=== PATIENT | female | born 1985 | race Caucasian/White ===

== ENCOUNTER 2018-07-22 07:38 | Emergency (ER) | payer SELFPAY | END 2018-07-22 08:02 | LOC: JD.ED 07:38 | DX: Z53.21 Procedure and treatment not carried out due to patient leaving prior to being seen by health care provider (principal) ==

== ENCOUNTER 2021-05-27 11:56 | Emergency (ER) | payer BC ==
[2021-05-27] MEDS ORDERED: Sodium Chloride 0.9% 10 ML Syringe FLUSH PRN (12:47)
[2021-05-27] MEDS ORDERED: Hyoscyamine 0.125 MG Tab.SL SL ONE (12:49)
[2021-05-27 15:11] VITALS: BP 122/87; PULSE 89
== END 2021-05-27 15:11 | disposition home or self-care (01) ==
LOC: JD.ED 11:56
DX: R10.11 Right upper quadrant pain (principal)
CPT/HCPCS: 36415; 74018; 76705; 80053; 81003; 83690; 83735; 85025; 86140; 99284; A9270; J3490; 99283